=== PATIENT | female | born 1995 | race Caucasian/White ===

== ENCOUNTER 2020-09-20 08:00 | Inpatient (IN) | payer OTHER, BC, MEDICAID, SELFPAY ==
[2020-09-20] VITALS (25 sets, daily range): BP systolic 117–144; BP diastolic 55–82; PULSE 63–98; RESP 16–18; TEMP 36.7–37.2; O2SAT 97; BMI 32.5
[2020-09-20] MEDS: miSOPROStol 100 mcg tablet 25 MCG SUBLINGUAL (08:46)
[2020-09-20 09:24] LABS: Nitrazine Paper, PH Positive
[2020-09-20 09:27] LABS: Basophils # 0.1 10^3/uL (0.0-0.1); Basophils % 0.5 %; Eosinophils % 0.4 %; Hemoglobin 12.4 g/dL (11.5-15.3); Lymphocytes # 2.2 10^3/uL (0.8-4.8); Lymphocytes % 22.6 %; Mean Corpuscular HGB Conc 32.6 g/dL (30.0-36.0); Mean Platelet Volume 11.8 fL (7.4-10.4); Monocytes # 0.8 10^3/uL (0.2-0.9); Monocytes % 8.6 %; Neutrophils # 6.49 10^3/uL (1.8-7.7); Neutrophils % 67.7 %; Nucleated Red Blood Cells % 0 %; Platelet Count 217 10^3/cmm (130-400); Red Blood Count 4.13 10^6/uL (4.1-5.3); Red Cell Distribution Width 11.9 % (12.1-15.1); White Blood Count 9.6 10^3/uL (4.0-10.0)
[2020-09-20] MEDS: fentaNYL 50 mcg/mL INJ 2mL IVP (11:18)
[2020-09-20] MEDS: lactated ringers 1,000 ML 999 ML IV (11:26)
--- NOTE | 2020-09-20 12:39 | PM.DELIVERY ---
Delivery Note: Date of delivery: September 20, 2020 Pre-delivery diagnoses: 25-year-old 2 at 36 weeks estimated gestational age with spontaneous rupture of membranes Post-delivery diagnoses: Status post spontaneous vaginal delivery Procedure: Spontaneous vaginal delivery Op report anesthesia: None Delivering Physician: Mario Gonsales Estimated blood loss (mL): 50 Pre-Delivery Course: The patient is a 25-year-old 2 female who presented to the hospital with spontaneous rupture membranes shortly before arrival. Her contractions were consistent, and she is having very little pain. As result we placed her on Cytotec 25 mcg sublingual x1. From there, she progressed to complete without difficulty. She was GBS negative. Covid status unknown. Blood type is a positive. She passed her glucose screen. The remainder of her labs were within normal limits. Delivery: DELIVERY: The patient progressed to complete without difficulty. She delivered a male with a weight of 6 pounds 6 ounces with Apgars of 9, 9. The baby was delivered from the STEVEN position. The baby's mouth and nose were suctioned at the site of the perineum. The baby was then completely delivered and placed on the mother's abdomen. The cord was then clamped and cut. There was no nuchal cord. There was no meconium. The placenta and 3 vessel cord were delivered intact shortly thereafter. The perineum and vaginal vault were carefully examined. No lacerations were noted. Both the mother and the baby were in stable condition. Post-Delivery Status: Good A&P Assessment and plan (1) 36 weeks gestation of : Anticipate routine care. The patient plans on breast-feeding. Status: Acute (2) Spontaneous vaginal delivery: Status: Acute Coding Level of Care Code Acute Head Of Academic Technology for Chg Fwd Diagnoses 36 weeks gestation of Z3A.36 Spontaneous vaginal delivery O80
[2020-09-20] MEDS: ibuprofen 800 mg tablet PO ×2 (16:48→20:01)
[2020-09-20] MEDS: docusate sodium 100 mg Capsule PO (18:13)
[2020-09-20] MEDS: lanolin oint 7 gm 1 APPLIC TOPICAL (20:01)
[2020-09-21 00:33] LABS: Hematocrit 32.5 % (37.0-47.0); Hemoglobin 10.9 g/dL (11.5-15.3); Mean Corpuscular HGB Conc 33.5 g/dL (30.0-36.0); Mean Corpuscular Hemoglobin 31.2 pg (28.0-34.0); Mean Corpuscular Volume 93.1 fL (81-99); Mean Platelet Volume 11.6 fL (7.4-10.4); Platelet Count 186 10^3/cmm (130-400); Red Blood Count 3.49 10^6/uL (4.1-5.3); White Blood Count 16.3 10^3/uL (4.0-10.0)
[2020-09-21 02:50] VITALS: BP 113/61; PULSE 63; RESP 16; TEMP 36.8; O2SAT 98
[2020-09-21 02:51] VITALS: BP 113/61; PULSE 64; O2SAT 98
[2020-09-21 06:15] VITALS: BP 131/63; PULSE 62; PULSE 68; O2SAT 98
--- NOTE | 2020-09-21 07:48 | PM.OBGYDC ---
Discharge Providers DELIVERY DEPARTMENT SUPERVISOR Date of Admission: 09/20/20 08:00 Date of Discharge: 09/21/20 Attending Provider at Admission: Mario Gonsales MD Attending Provider at Discharge: Mario Gonsales MD Primary Care Provider: Daniel Gonzalez DO Diagnoses at Discharge Discharge Diagnosis (1) 36 weeks gestation of : Status: Acute (2) Spontaneous vaginal delivery: Status: Acute Reason for Visit Reason for Visit: Possible rupture of membranes Hospital Course Hospital Course The patient is a 1 female at 36 weeks estimated gestational age who presented to the hospital with spontaneous rupture membranes. She was noted to be grossly ruptured upon arrival. She is now having consistent contractions so Cytotec was placed. She then progressed to complete without difficulty and had an unremarkable delivery of a healthy-appearing male infant. Her course was also unremarkable. Her bleeding was within normal limits. She breast-fed well. Her pain was well controlled. Information Peripartum Data: Infant Delivery Method: Vaginal Physical Exam Narrative: EXAM NARRATIVE: The patient is alert. She appears comfortable. Her heart has a regular rate and rhythm with no murmurs appreciated. Lungs are clear to auscultation bilaterally. Her fundus is firm and below the umbilicus. Discharge Data Data Completed and Pending: Pending at discharge Category Date Time Status Coronavirus Test [facility] 09/20/20 09:05 Received Labs from last 24 hours 09/21/20 09/20/20 09/20/20 00:17 09:05 09:00 WBC 16.3 H 9.6 RBC 3.49 L 4.13 Hgb 10.9 L 12.4 Hct 32.5 L 38.0 MCV 93.1 92.0 MCH 31.2 30.0 MCHC 33.5 32.6 RDW 12.0 L 11.9 L Plt Count 186 217 MPV 11.6 H 11.8 H Neut % (Auto) 67.7 Lymph % (Auto) 22.6 [place] % (Auto) 8.6 Eos % (Auto) 0.4 Baso % (Auto) 0.5 Neut # (Auto) 6.49 Lymph # (Auto) 2.2 [place] # (Auto) 0.8 Eos # (Auto) 0.0 Baso # (Auto) 0.1 Nucleated RBC % (a uto) 0 Nucleated RBCs # 0.0 Nasal/Oral COVID-1 9 PCR Pending Vitals: Last Vital Signs Temp 98.2 F 09/21/20 02:50 Pulse 62 09/21/20 06:15 Resp 16 09/21/20 02:50 BP 131/63 09/21/20 06:15 Pulse Ox 98 09/21/20 06:15 Discharge Plan Discharge Patient Disposition: Home Condition: Stable Prescriptions: New ibuprofen 800 mg Tablet 800 mg PO TID Qty: 30 RF: 0 -U 106.5-1 mg Capsule 1 cap PO DAILY Qty: 90 RF: 1 Discharge Orders: Discharge Order (Routine); Ordered 09/21/20 Ordered By: Mario Gonsales Referrals: Mario Gonsales MD [Physician] - 6 Weeks Discharge Diet: Usual diet Discharge Activity: Limit activity as instructed Discharge Attestations DELIVERY DEPARTMENT SUPERVISOR Time Spent in Discharge Care*: less than 30 min Coding Level of Care Code Acute Painter And Paperhanger Apprentice for Chg Fwd Diagnoses 36 weeks gestation of Z3A.36 Spontaneous vaginal delivery O80
[2020-09-21] MEDS: docusate sodium 100 mg Capsule PO (09:39)
[2020-09-21] MEDS: ibuprofen 800 mg tablet PO (09:39)
[2020-09-21 09:42] VITALS: BP 122/70; PULSE 61; TEMP 36.1; TEMP 36.6
[2020-09-21 13:23] VITALS: BP 119/59; PULSE 69; RESP 16; TEMP 36.7
[2020-09-21 13:30] VITALS: BP 119/59; PULSE 69; RESP 16; TEMP 36.7
[2020-09-21 22:03] LABS: Coronavirus Test Green County Not Detected
== END 2020-09-21 13:40 | disposition home or self-care (01) | DRG 807 ==
PROVIDERS: Admitting Provider Family Medicine; Family Provider Electrodiagnostic Medicine; PCP Electrodiagnostic Medicine; Visit Provider Family Medicine
DX: O99.284 Endocrine, nutritional and metabolic diseases complicating childbirth (principal); Z37.0 Single live birth; E03.9 Hypothyroidism, unspecified; Z3A.36 36 weeks gestation of pregnancy
CPT/HCPCS: 12345; 36415; 59025; 59409; 83986; 85025; 85027; 87635; 96374; 99211; J3010

== ENCOUNTER 2021-12-31 21:03 | Emergency (ER) | payer OTHER, BC, MEDICAID, SELFPAY ==
--- NOTE | 2021-12-31 21:08 | XRR_ITS ---
PROCEDURE INFORMATION: Exam: XR Left Foot Exam date and time: 12/31/2021 9:34 PM Age: 26 years old Clinical indication: Pain; Foot; Left; Additional info: Injury TECHNIQUE: Imaging protocol: XR Left foot. Views: 3 or more views. COMPARISON: No relevant prior studies available. FINDINGS: Bones/joints: Normal. Soft tissues: Normal. XR/XR foot LT min 3V* [id number] IMPRESSION: No acute findings.
[2021-12-31 21:12] VITALS: BP 107/67; PULSE 68; RESP 13; TEMP 37.1; O2SAT 100; BMI 25.6
--- NOTE | 2021-12-31 21:22 | ED_ITS ---
HPI - Extremity Problem General: Chief complaint: Extremity Injury, Lower Stated complaint: LT foot injury Time Seen by Provider: 12/31/21 21:07 History of Present Illness: 26-year-old female comes in today with complaints of injury to the left foot. Patient reports that she was walking down the steps and missed the last 2 steps causing her to twist her left foot. Patient has pain and discomfort with ambulation. No obvious deformity or swelling is noted in the foot. Patient denies any chronic medical problems or routine medications except a multivitamin. Associated symptoms: Deny chest pain or fever(s) Review of Systems General: Reports: 10 or more systems reviewed and unremarkable except in HPI and below Const: Denies: fever(s) Card: Denies: chest pain Resp: Denies: dyspnea Musc: Reports: extremity pain Physical Exam Const: COMMON NORMALS: alert Neck/C-Spine: COMMON NORMALS: full ROM Resp: COMMON NORMALS: normal respiratory effort Cardio: COMMON NORMALS: regular rate RATE: regular rate Extremity: LEFT LOWER EXTREMITY: Yes foot & digits (Tenderness noted to the dorsal foot, no swelling or bruising is noted.) Neuro: SENSORIUM/ORIENTATION: Yes alert Skin: COMMON NORMALS: no rashes or lesions noted GENERAL SKIN EXAM: no rashes or lesions noted Course Vital Signs: Vital signs: Vital Signs Temperature 98.8 F 12/31/21 21:12 Pulse Rate 68 12/31/21 21:12 Respiratory Rate 13 12/31/21 21:12 Blood Pressure 107/67 12/31/21 21:12 Pulse Oximetry 100 12/31/21 21:12 MDM - Extremity (Nontraumatic) Medical Decision Making 26-year-old female comes in today with injury to the left foot. On exam there is no obvious deformity, minimal swelling, tenderness to the dorsal foot. Differential diagnosis includes contusion, sprain, fracture. X-ray notes no fracture or dislocation. Reviewed exam with patient with recommendations for Tylenol and ibuprofen for pain along with ice packs. Patient reported understanding and agreed to plan. Discharge Plan Discharge Patient Disposition: Home Clinical Impression: Sprain of foot joint Qualifiers: Encounter type: initial encounter Laterality: left Qualified Code(s): S93.602A - Unspecified sprain of left foot, initial encounter Condition: Stable Prescriptions: Continued ibuprofen 800 mg Tablet 800 mg PO TID Qty: 30 0RF No Action -U 106.5-1 mg Capsule 1 cap PO DAILY Qty: 90 1RF Discharge Orders: Discharge ED (Routine); Ordered 12/31/21 Ordered By: Rodriguez Castillo Referrals: Daniel Gonzalez DO [Primary Care Provider] - Discharge Diet: Usual diet Discharge Activity: Increase activity as tolerated Patient Instructions: Musculoskeletal Pain (ED), Opioid Safety Activity Restrictions/Additional Instructions: Activity as tolerated. Use acetaminophen and ibuprofen for pain. Use ice packs for further pain relief. Increase activity as tolerated. Most people with sprains in 2 to 3 days will start having improvement in pain and discomfort. You may use crutches or a Rebel wrap for comfort. Follow-up with primary care as needed. Return to ER for new concerns. Coding Level of Care Code ED Engineer Assistant for Aaliyah Fwd Exam Detailed
[2021-12-31] MEDS: ibuprofen 600 mg Tablet PO (21:30)
== END 2021-12-31 21:50 | disposition home or self-care (01) ==
PROVIDERS: Emergency Provider Nurse Practitioner Family; PCP Electrodiagnostic Medicine
DX: S93.602A Unspecified sprain of left foot, initial encounter (principal); W10.9XXA Fall (on) (from) unspecified stairs and steps, initial encounter
CPT/HCPCS: 73630; 99283

== ENCOUNTER → 2024-08-25 14:22 | Outpatient (BNVA) | payer OTHER, SELFPAY | PROVIDERS: PCP Electrodiagnostic Medicine; Visit Provider Nurse Practitioner Family | DX: N89.8 Other specified noninflammatory disorders of vagina (principal) | CPT/HCPCS: 87491; 87591; 87661 ==

== ENCOUNTER → 2024-12-13 14:24 | Outpatient (BNVA) | payer OTHER, SELFPAY | PROVIDERS: PCP Electrodiagnostic Medicine; Visit Provider Nurse Practitioner Family | DX: N89.8 Other specified noninflammatory disorders of vagina (principal) | CPT/HCPCS: 81003; 81025; 87086 ==